=== PATIENT | female | born 2000 | race Caucasian/White ===

== ENCOUNTER → 2020-06-11 10:58 | Outpatient (BNVA) | payer BC, SELFPAY | PROVIDERS: Family Provider Pediatrics Adolescent Medicine; Visit Provider Nurse Practitioner Family | DX: Z20.828 Contact with and (suspected) exposure to other viral communicable diseases (principal) | CPT/HCPCS: 87635 ==

== ENCOUNTER 2020-09-02 08:09 | Emergency (ER) | payer BC, SELFPAY ==
[2020-09-02 08:14] VITALS: BP 120/82; PULSE 109; RESP 16; TEMP 36.3; O2SAT 99; BMI 27.4
--- NOTE | 2020-09-02 08:17 | W.ED.LOWEXIN ---
HPI - Extremity Injury (Lower) General: Chief Complaint: Extremity Injury, Lower Stated Complaint: FELL, R ANKLE INJURY/PAIN Time Seen by Provider: 09/02/20 08:12 Source: patient Mode of arrival: wheelchair Limitations: no limitations History of Present Illness: HPI Narrative: Patient is a nice 19-year-old female who presents to ED today for evaluation of a right ankle injury that she sustained after twisting it while going down icy steps. She has no other injuries at this time. Patient reports not being able to bear weight on the extremity. MD complaint: ankle injury Onset (ago): hour(s) Injury: Right: ankle Type of Injury: inversion Place: home Severity: moderate Relieving factors: immobilization Exacerbating factors: weight bearing, movement and palpation Associated symptoms: Reports no associated symptoms Other symptoms: none Review of Systems Musc: Reports: other (R ankle pain/swelling); Denies: neck pain or back pain Neuro: Denies: numbness in extremities or sensory changes Physical Exam Const: COMMON NORMALS: no acute distress, average body habitus, patient oriented x3, no limitations, healthy appearing, alert and well nourished Extremity: OTHER: TTP and swelling noted to R lateral malleolus Neuro: COMMON NORMALS: patient oriented x3, moves all extremities, no focal motor deficits and no sensory deficits noted SENSORIUM/ORIENTATION: Yes alert Skin: COMMON NORMALS: no rashes or lesions noted GENERAL SKIN EXAM: no rashes or lesions noted Course Vital Signs: Vital signs: Vital Signs Temperature 97.3 F L 09/02/20 08:14 Pulse Rate 109 H 09/02/20 08:14 Respiratory Rate 18 09/02/20 08:50 Blood Pressure 135/44 09/02/20 08:50 Pulse Oximetry 99 09/02/20 08:14 MDM - Extremity Injury (Lower) MDM Narrative: Medical decision making narrative: pt will be splinted and CM will get her set up with orthopedics for followup Imaging Data^: R ankle XR: Radiologist's impression: [address] [address] XRay Report Signed Patient: Klarissa Rosas Unit #: [id number] : 2000 Age/Sex: 19 / F ADM Date: 09/02/20 Loc: ER Room/Bed: Attending Dr: Ordering Provider/Ordering MD: Yara Tobar Date of Service: 09/02/20 Procedure(s): XR ankle RT min 3V* 53474 Accession Number(s): [id number] Report Number: [id number] WS: [id number] RIGHT ANKLE: 3 VIEW(S) TECHNIQUE: AP, oblique(s) and lateral. HISTORY: trauma COMPARISON: None available. Seen only on the lateral projection is blunting and loss of the normal cortex of the anterior tibial plafond. No fracture fragment is identified. There is a linear sclerotic line involving the distal tibia which may be an impaction fracture. There is a small joint effusion and soft tissue edema anterior to the tibiotalar joint space. No significant degenerative changes at the joint spaces. XR/XR ankle RT min 3V* [id number] IMPRESSION: 1. Abnormal contour of the anterior tibial plafond seen on the lateral projection suspicious for an impaction fracture. No bone fragment identified. 2. Additional horizontal sclerosis involving the distal tibia suspicious for fracture. Dictated By: Bia López DO Signed By: Bia López DO Signed Date/Time: 09/02/20 0854 DD/ 0851 Discharge Plan Discharge Patient Disposition: Home Clinical Impression: Fracture of distal end of tibia Qualifiers: Encounter type: initial encounter Fracture type: closed Fracture morphology: pilon Fracture alignment: nondisplaced Laterality: right Qualified Code(s): S82.874A - Nondisplaced pilon fracture of right tibia, initial encounter for closed fracture Condition: Stable Prescriptions: No Action norgestimate-ethinyl estradiol [Tri-Sprintec (28)] 0.18/0.215/0.25 mg-35 mcg (28) tablet 1 tab PO DAILY RF: 0 melatonin 5 mg capsule 5 mg PO .qhs RF: 0 Discharge Orders: Discharge ED (Routine); Ordered 09/02/20 Ordered By: Yara Tobar Activity Restrictions/Additional Instructions: Case management should contact you shortly to set you up with orthopedics. Coding Level of Care Code ED Probation Manager for Chg Fwd Exam Expanded Problem Focused
--- NOTE | 2020-09-02 08:22 | XR_ITS ---
WS: [id number] RIGHT ANKLE: 3 VIEW(S) TECHNIQUE: AP, oblique(s) and lateral. HISTORY: trauma COMPARISON: None available. Seen only on the lateral projection is blunting and loss of the normal cortex of the anterior tibial plafond. No fracture fragment is identified. There is a linear sclerotic line involving the distal ti ca which may be an impaction fracture. There is a small joint effusion and soft tissue edema anterior to the tibiotalar joint space. No significant degenerative changes at the joint spaces. XR/XR ankle RT min 3V* [id number] IMPRESSION: 1. Abnormal contour of the anterior tibial plafond seen on the lateral project ion suspicious for an impaction fracture. No bone fragment identified. 2. Additional horizontal sclerosis involving the distal tibia suspicious for f racture.
[2020-09-02 08:50] VITALS: BP 135/44; RESP 18
--- NOTE | 2020-09-02 09:35 | PC.NURSE ---
ROSANNA Livingston caught patient in the waiting room prior to leaving due to the radiology reading coming back and showing possible fracture. Short posterior splint with sugar tong placed on patient and patient then discharged.
--- NOTE | 2020-09-02 10:40 | DCPLANNER ---
manager control had message to schedule a follow up appointment for patient with ortho. manager control called the ortho clinic, spoke with Urszula, gave the clinic patients information. manager control was told that patients information would be printed and reviewed. Clinic will call patient with appointment information.
--- NOTE | 2020-09-03 08:18 | DCPLANNER ---
Patient had a follow up appointment for patient with ortho on 09.02.20 - patient did attend appointment.
== END 2020-09-02 08:50 | disposition home or self-care (01) ==
PROVIDERS: Emergency Provider Physician Assistant
DX: S82.874A Nondisplaced pilon fracture of right tibia, initial encounter for closed fracture (principal); X50.1XXA Overexertion from prolonged static or awkward postures, initial encounter
CPT/HCPCS: 12345; 29515; 73610; 99281; 99283; E0114

== ENCOUNTER 2020-09-02 16:25 | Outpatient (CLI) | payer BC, SELFPAY | END 2020-09-02 16:26 | disposition home or self-care (01) | LOC: SPT 16:26 | PROVIDERS: Visit Provider Orthopaedic Surgery | DX: Z46.89 Encounter for fitting and adjustment of other specified devices (principal); S93.401D Sprain of unspecified ligament of right ankle, subsequent encounter; X58.XXXD Exposure to other specified factors, subsequent encounter | CPT/HCPCS: 97760; L1902 ==

== ENCOUNTER 2022-07-30 09:06 | Emergency (ER) | payer BC, SELFPAY ==
[2022-07-30 09:11] VITALS: BP 154/86; PULSE 100; RESP 13; TEMP 36.9; O2SAT 99; BMI 31.1
--- NOTE | 2022-07-30 09:39 | ECG_ITS ---
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 Measurements Intervals [place] Rate: 80 P: 42 LA: 141 QRS: 53 QRSD: 90 T: 15 QT: 360 QTc: 415 Interpretive Statements SINUS RHYTHM NONSPECIFIC T-WAVE ABNORMALITY No previous ECG available for comparison Electronically Signed On 07-30-2022 19:00:51 LUMP MACHINE OPERATOR by Tawny Underwood M.D. [id number]
--- NOTE | 2022-07-30 09:39 | XRR_ITS ---
PROCEDURE INFORMATION: Exam: XR Chest Exam date and time: 07/30/2022 9:51 AM Age: 21 years old Clinical indication: Cough and dyspnea. TECHNIQUE: Imaging protocol: Radiologic exam of the chest. Views: 1 view. COMPARISON: No relevant prior studies available. FINDINGS: Lungs: No pulmonary consolidation. Pleural spaces: No pleural effusion. No pneumothorax. Heart/Mediastinum: The cardiac silhouette is unremarkable. No gross evidence of pneumomediastinum. Bones/joints: No gross fracture. XR/XR chest 1V portable [id number] IMPRESSION: No acute cardiopulmonary abnormality identified.
[2022-07-30 09:45] VITALS: BP 141/70; O2SAT 98
--- NOTE | 2022-07-30 10:10 | ED_ITS ---
HPI - General Adult General: Chief complaint: General Medical Stated complaint: Robles sent for BP issues and headache Time Seen by Provider: 07/30/22 09:31 Source: patient Mode of arrival: ambulatory History of Present Illness: 21-year-old female presents to the emergency room with complaints of elevated blood pressure and headache. Yesterday she had a headache with some associated blurry vision this morning when she went to see her doctor blood pressure is elevated at 178/102 her vision is resolved today. Her primary care physician sent her to the emergency room. Her symptoms have resolved at this point and she had no recent fever sweats chills nausea vomiting or diarrhea no dysuria urgency or frequency. Onset (ago): day(s) (1) Location: head Quality: dull Pain Consistency: constant Relieving factors: none Exacerbating factors: none Associated symptoms: Reports headache(s); Deny chest pain, confusion, cough, diaphoresis, decreased appetite, dyspnea, fevers/chills, malaise, nausea, rash, palpitations, seizures, short of breath, syncope, vomiting or weakness Treatments prior to arrival: none Review of Systems Const: Denies: fever(s), chills, fatigue, malaise or diaphoresis ENMT: Denies: throat pain, ear or mastoid pain, nasal discharge or nasal congestion Card: Denies: chest pain, palpitations or syncope Resp: Denies: dyspnea GI: Denies: abdominal pain, nausea or vomiting : Denies: flank pain, difficulty voiding, dysuria, urinary frequency or urinary urgency Skin/Breast: Denies: rash Neuro: Reports: headache(s); Denies: confusion PFSH ED PFSH: Medical History (Updated 08/03/22 @ 07:52 by Eric Gunter DO) No significant past medical history Surgical History (Updated 08/03/22 @ 07:52 by Eric Gunter DO) No significant past surgical history Social History (Updated 08/03/22 @ 07:52 by Eric Gunter DO) Smoking and tobacco status: never smoked Alcohol intake: never Physical Exam Const: COMMON NORMALS: no acute distress GENERAL APPEARANCE: cooperative and comfortable ORIENTATION/CONSCIOUSNESS: Yes awake, Yes oriented to person, Yes oriented to place and Yes oriented to time HENMT: COMMON NORMALS: normocephalic, atraumatic, hearing grossly normal bilaterally, external ears normal, EAC's normal, TM's normal bilaterally, Normal nasal mucous membranes and turbinates present, moist oral mucous membranes and oropharynx normal HEAD & SCALP: normocephalic and atraumatic NOSE: Normal nasal mucous membranes and turbinates present EXTERNAL EAR: Yes external ears normal EXTERNAL AUDITORY CANAL: EAC's normal TYMPANIC MEMBRANE: TM's normal bilaterally Eye: COMMON NORMALS: Equal, round and reactive pupils present, EOMs intact bilaterally, conjunctivae normal and no scleral icterus CONJUNCTIVA: Yes conjunctivae normal PUPIL: Yes Equal, round and reactive pupils present Neck/C-Spine: COMMON NORMALS: no lymphadenopathy and supple Resp: COMMON NORMALS: normal respiratory effort, No retractions, No use of accessory muscles and clear to auscultation bilaterally AUSCULTATION: clear to auscultation bilaterally Cardio: COMMON NORMALS: regular rate, regular rhythm and No murmurs present (Cardio) RATE: regular rate RHYTHM: regular rhythm GI: COMMON NORMALS: Soft to palpation and No hepatosplenomegaly present AUSCULTATION: Yes normoactive bowel sounds PALPATION: Yes Soft to palpation, No Tenderness to palpation present (GI), No Guarding due to palpation present (GI) and Yes No hepatosplenomegaly present Extremity: COMMON NORMALS: normal to inspection, capillary refill normal, no clubbing, cyanosis or edema, no calf tenderness and no pedal edema Neuro: SENSORIUM/ORIENTATION: Yes oriented to person, Yes oriented to place and Yes oriented to time Skin: COMMON NORMALS: no rashes or lesions noted GENERAL SKIN EXAM: no rashes or lesions noted Course Vital Signs: Vital signs: Vital Signs Temperature 98.4 F 07/30/22 09:11 Pulse Rate 100 07/30/22 09:11 Respiratory Rate 13 07/30/22 09:11 Blood Pressure 141/70 07/30/22 09:45 Pulse Oximetry 98 07/30/22 09:45 Oxygen Delivery Me thod 07/30/22 09:45 [facility] - General Adult Medical Decision Making Neurologically intact no focal neurologic deficits are noted laboratory test reviewed. EKG and chest x-ray unremarkable blood pressure is stable at this point. We will go ahead and start on amlodipine 2 and half milligrams daily follow-up with her primary care doctor recheck blood pressure within the week. Some of her symptoms are suggestive of migraine variant. Medical Records I reviewed the patient's medical records. Lab Data I reviewed the patient's lab results. 07/30/22 10:04 07/30/22 10:04 Radiology Impressions Chest X-Ray 07/30/22 09:39 IMPRESSION: No acute cardiopulmonary abnormality identified. Laboratory Results WBC 6.2 10^3/uL (4.0-10.0) 07/30/22 10:04 RBC 5.42 10^6/uL (4.1-5.3) H 07/30/22 10:04 Hgb 15.9 g/dL (11.5-15.3) H 07/30/22 10:04 Hct 47.2 % (37.0-47.0) H 07/30/22 10:04 MCV 87.1 fl (81-99) 07/30/22 10:04 MCH 29.3 pg (28.0-34.0) 07/30/22 10:04 MCHC 33.7 g/dL (30.0-36.0) 07/30/22 10:04 RDW 12.9 % (12.1-15.1) 07/30/22 10:04 Plt Count 304 10^3/cmm (130-400) 07/30/22 10:04 MPV 11.0 fL (7.4-10.4) H 07/30/22 10:04 Neut % (Auto) 59.3 % 07/30/22 10:04 Lymph % (Auto) 32.7 % 07/30/22 10:04 [place] % (Auto) 6.4 % 07/30/22 10:04 Eos % (Auto) 0.6 % 07/30/22 10:04 Baso % (Auto) 0.8 % 07/30/22 10:04 Neut # (Auto) 3.70 10^3/uL (1.8-7.7) 07/30/22 10:04 Lymph # (Auto) 2.0 10^3/uL (0.8-4.8) 07/30/22 10:04 [place] # (Auto) 0.4 10^3/uL (0.2-0.9) 07/30/22 10:04 Eos # (Auto) 0.0 10^3/uL (0.0-0.8) 07/30/22 10:04 Baso # (Auto) 0.1 10^3/uL (0.0-0.1) 07/30/22 10:04 Nucleated RBC % (auto) 0 % 07/30/22 10:04 Nucleated RBCs # 0.0 /100WBC 07/30/22 10:04 Sodium 135 mmol/L (136-145) L 07/30/22 10:04 Potassium 3.9 mmol/L (3.5-5.1) 07/30/22 10:04 Chloride 102 mmol/L (98-107) 07/30/22 10:04 Carbon Dioxide 22 mmol/L (22-29) 07/30/22 10:04 Anion Gap 14.9 (5-19) 07/30/22 10:04 BUN 8 mg/dL (6-20) 07/30/22 10:04 Creatinine 0.7 mg/dL (0.5-0.9) 07/30/22 10:04 GFR Calculation 105.6 mL/min (90-130) 07/30/22 10:04 Glucose 81 mg/dL (65-115) 07/30/22 10:04 Calculated Osmolality 277 mOsm/kg (285-295) L 07/30/22 10:04 Calcium 9.8 mg/dL (8.5-10.5) 07/30/22 10:04 Discharge Plan Discharge Patient Disposition: Home Clinical Impression: Elevated blood pressure reading, Migraine variant Condition: Stable Prescriptions: New amlodipine 2.5 mg tablet 2.5 mg PO DAILY Qty: 30 0RF No Action melatonin 5 mg capsule 5 mg PO BEDTIME (DME) CAM WALKER See Rx Instructions .ROUTE .MEDSUPPLY Qty: 1 0RF Rx Instructions: As directed (DME) Lace up ankle brace See Rx Instructions .Route .MEDSUPPLY Qty: 1 0RF Rx Instructions: As directed 1.5/30 (28) 1.5 mg-30 mcg (21)/75 mg (7) tablet 1 tab PO DAILY Discharge Orders: Discharge ED (Routine); Ordered 07/30/22 Ordered By: Eric Gunter Referrals: Alaina Arboleda DO [Primary Care Provider] - Discharge Diet: Usual diet Discharge Activity: Resume usual activity Activity Restrictions/Additional Instructions: You were seen today for a headache with vision disturbance and elevated blood pressure. Based on history I think your visual disturbance which had resolved when you were here is probably a migraine variant. Your blood pressure remains slightly elevated and you reported and much more elevated level at the doctor's office. We started you on amlodipine 2.5 mg daily. Follow-up with your primary care doctor recheck your blood pressure within the next week. Coding Level of Care Code ED Health Facilities Surveyor for Higinio Wilson
[2022-07-30 10:26] LABS: Basophils # 0.1 10^3/uL (0.0-0.1); Basophils % 0.8 %; Eosinophils % 0.6 %; Hematocrit 47.2 % (37.0-47.0); Hemoglobin 15.9 g/dL (11.5-15.3); Lymphocytes % 32.7 %; Mean Corpuscular HGB Conc 33.7 g/dL (30.0-36.0); Mean Corpuscular Hemoglobin 29.3 pg (28.0-34.0); Mean Corpuscular Volume 87.1 fl (81-99); Monocytes # 0.4 10^3/uL (0.2-0.9); Monocytes % 6.4 %; Neutrophils % 59.3 %; Nucleated Red Blood Cells % 0 %; Platelet Count 304 10^3/cmm (130-400); Red Blood Count 5.42 10^6/uL (4.1-5.3); Red Cell Distribution Width 12.9 % (12.1-15.1); White Blood Count 6.2 10^3/uL (4.0-10.0)
[2022-07-30 10:43] LABS: Anion Gap 14.9 (5-19); Blood Urea Nitrogen 8 mg/dL (6-20); Calcium 9.8 mg/dL (8.5-10.5); Carbon Dioxide 22 mmol/L (22-29); Chloride 102 mmol/L (98-107); Glomerular Filtration Rate 105.6 mL/min (90-130); Glucose 81 mg/dL (65-115); Osmolality Calculated 277 mOsm/kg (285-295); Potassium 3.9 mmol/L (3.5-5.1); Sodium 135 mmol/L (136-145)
== END 2022-07-30 11:45 | disposition home or self-care (01) ==
PROVIDERS: Emergency Provider Family Medicine; PCP Family Medicine
DX: R03.0 Elevated blood-pressure reading, without diagnosis of hypertension (principal); G43.809 Other migraine, not intractable, without status migrainosus
CPT/HCPCS: 71045; 80048; 85025; 93005; 99285

== ENCOUNTER → 2022-11-04 08:52 | Outpatient (BNVA) | payer SELFPAY | PROVIDERS: PCP Family Medicine; Visit Provider Nurse Practitioner Women's Health | DX: N92.6 Irregular menstruation, unspecified (principal); Z32.01 Encounter for pregnancy test, result positive; Z32.02 Encounter for pregnancy test, result negative | CPT/HCPCS: 81000; 81025; 84702 ==

== ENCOUNTER → 2022-11-16 08:10 | Outpatient (BNVA) | payer SELFPAY | PROVIDERS: PCP Family Medicine; Visit Provider Nurse Practitioner Women's Health | DX: Z32.00 Encounter for pregnancy test, result unknown (principal) | CPT/HCPCS: 84702 ==

== ENCOUNTER → 2023-01-06 10:43 | Outpatient (BNVA) | payer MEDICAID, SELFPAY | PROVIDERS: PCP Family Medicine; Visit Provider Nurse Practitioner Women's Health | DX: Z32.00 Encounter for pregnancy test, result unknown (principal) | CPT/HCPCS: 81025 ==

== ENCOUNTER → 2023-01-07 09:40 | Outpatient (BNVA) | payer MEDICAID, SELFPAY | PROVIDERS: PCP Family Medicine; Visit Provider Nurse Practitioner Women's Health | DX: Z32.00 Encounter for pregnancy test, result unknown (principal) | CPT/HCPCS: 84702 ==

== ENCOUNTER → 2023-02-02 09:28 | Outpatient (BNVA) | payer MEDICAID, SELFPAY | PROVIDERS: PCP Family Medicine; Visit Provider Obstetrics & Gynecology | DX: Z36.87 Encounter for antenatal screening for uncertain dates (principal) | CPT/HCPCS: 76817 ==

== ENCOUNTER → 2023-02-04 08:17 | Outpatient (BNVA) | payer MEDICAID, SELFPAY | PROVIDERS: PCP Family Medicine; Visit Provider Nurse Practitioner Women's Health | DX: O09.90 Supervision of high risk pregnancy, unspecified, unspecified trimester (principal); Z3A.00 Weeks of gestation of pregnancy not specified | CPT/HCPCS: 81000; 87086 ==

== ENCOUNTER → 2023-02-19 10:30 | Outpatient (BNVA) | payer MEDICAID, SELFPAY | PROVIDERS: PCP Family Medicine; Visit Provider Obstetrics & Gynecology | DX: O09.90 Supervision of high risk pregnancy, unspecified, unspecified trimester (principal) | CPT/HCPCS: 80307; 81000; 85027; 86592; 86762; 86803; 86850; 86900; 87340; 87806 ==

== ENCOUNTER → 2023-03-12 09:39 | Outpatient (BNVA) | payer MEDICAID, SELFPAY | PROVIDERS: PCP Family Medicine; Visit Provider Obstetrics & Gynecology | DX: O09.90 Supervision of high risk pregnancy, unspecified, unspecified trimester (principal); Z3A.00 Weeks of gestation of pregnancy not specified | CPT/HCPCS: 84315; 87491; 87591 ==

== ENCOUNTER → 2023-03-30 09:20 | Outpatient (BNVA) | payer MEDICAID, SELFPAY | PROVIDERS: PCP Family Medicine; Visit Provider Nurse Practitioner Women's Health | DX: O09.90 Supervision of high risk pregnancy, unspecified, unspecified trimester (principal); I10 Essential (primary) hypertension; Z78.9 Other specified health status; O41.8X90 Other specified disorders of amniotic fluid and membranes, unspecified trimester, not applicable or unspecified; O46.8X9 Other antepartum hemorrhage, unspecified trimester; Z3A.16 16 weeks gestation of pregnancy | CPT/HCPCS: 82105; 84156; 84315; 87086 ==

== ENCOUNTER 2023-04-05 12:45 | Outpatient (CLI) | payer MEDICAID, SELFPAY ==
[2023-04-05 14:36] LABS: Total Volume, Urine 2150 mL
== END 2023-04-05 12:46 | disposition home or self-care (01) ==
PROVIDERS: PCP Family Medicine; Visit Provider Nurse Practitioner Women's Health
DX: O09.90 Supervision of high risk pregnancy, unspecified, unspecified trimester (principal); O16.9 Unspecified maternal hypertension, unspecified trimester; Z3A.00 Weeks of gestation of pregnancy not specified
CPT/HCPCS: 84156

== ENCOUNTER → 2023-04-27 09:27 | Outpatient (BNVA) | payer MEDICAID, SELFPAY | PROVIDERS: PCP Family Medicine; Visit Provider Obstetrics & Gynecology | DX: Z34.90 Encounter for supervision of normal pregnancy, unspecified, unspecified trimester (principal) | CPT/HCPCS: 76805 ==

== ENCOUNTER → 2023-05-25 08:25 | Outpatient (BNVA) | payer MEDICAID, SELFPAY | PROVIDERS: PCP Family Medicine; Visit Provider Obstetrics & Gynecology | DX: Z34.90 Encounter for supervision of normal pregnancy, unspecified, unspecified trimester (principal) | CPT/HCPCS: 76816; 82950; 84315 ==

== ENCOUNTER → 2023-06-21 09:38 | Outpatient (BNVA) | payer MEDICAID, SELFPAY | PROVIDERS: PCP Family Medicine; Visit Provider Obstetrics & Gynecology | DX: O09.90 Supervision of high risk pregnancy, unspecified, unspecified trimester (principal); Z3A.28 28 weeks gestation of pregnancy | CPT/HCPCS: 84315; 85025 ==

== ENCOUNTER 2023-06-23 13:38 | Outpatient (CLI) | payer MEDICAID, SELFPAY ==
[2023-06-23 13:46] VITALS: BMI 31.1
[2023-06-23 13:56] VITALS: BP 128/71; PULSE 94; TEMP 35.7
[2023-06-23 14:07] VITALS: RESP 15; TEMP 37.3
[2023-06-23 14:23] LABS: Urine Appearance Cloudy (CLEAR); Urine Color Yellow (Yellow)
[2023-06-23 14:24] LABS: Bilirubin Urine Neg (Negative); Blood Urine Neg (Negative); Glucose Urine UA Norm (Normal); Ketones Urine 1+ (Negative); Leukocyte Esterase Urine Negative (Negative); Nitrate Urine Negative (Negative); Protein Urine Neg (Negative); Specific Gravity, Urine 1.015 (1.005-1.030); Urobilinogen Urine Norm (Negative); pH Urine 7 (5-7)
[2023-06-23 14:35] LABS: Amorphous Sediment Urine TRACE /hpf; Bacteria Urine 2+ /hpf; Mucus Urine 2+ /hpf; RBC Urine 0-4 /hpf (0-2); WBC Urine 15-25 /hpf (0-5)
[2023-06-23 14:36] LABS: Add Urine Culture? Yes; Fine Granular Casts Urine 0-4 /lpf; Oval Fat Bodies Urine 1+ /hpf
[2023-06-23 14:49] VITALS: BP 119/65; PULSE 80
== END 2023-06-23 14:54 | disposition home or self-care (01) ==
LOC: OPOB 13:43 → OBGYN 13:45
PROVIDERS: PCP Family Medicine; Visit Provider Obstetrics & Gynecology
DX: O21.9 Vomiting of pregnancy, unspecified (principal); Z3A.00 Weeks of gestation of pregnancy not specified
CPT/HCPCS: 59025; 81001; 87086; 99211

== ENCOUNTER → 2023-08-19 08:43 | Outpatient (BNVA) | payer MEDICAID, SELFPAY | PROVIDERS: PCP Family Medicine; Visit Provider Obstetrics & Gynecology | DX: O09.90 Supervision of high risk pregnancy, unspecified, unspecified trimester (principal); Z3A.36 36 weeks gestation of pregnancy | CPT/HCPCS: 84315; 87081 ==

== ENCOUNTER 2023-08-24 08:32 | Outpatient (CLI) | payer MEDICAID, SELFPAY ==
[2023-08-24 08:32] VITALS: BMI 33.5
[2023-08-24 08:45] VITALS: BP 139/79; PULSE 78
[2023-08-24 08:50] VITALS: RESP 17
[2023-08-24 09:20] VITALS: BP 124/69; PULSE 86
== END 2023-08-24 09:24 | disposition home or self-care (01) ==
LOC: OPOB 08:35 → OBGYN 08:36
PROVIDERS: PCP Family Medicine; Visit Provider Obstetrics & Gynecology
DX: O16.9 Unspecified maternal hypertension, unspecified trimester (principal); Z3A.00 Weeks of gestation of pregnancy not specified
CPT/HCPCS: 59025; 76819; 76820; 99211

== ENCOUNTER 2023-09-04 14:05 | Inpatient (IN) | payer MEDICAID, SELFPAY ==
[2023-09-04] VITALS (57 sets, daily range): BP systolic 117–162; BP diastolic 57–103; PULSE 69–126; RESP 16; TEMP 35.8–36.3; O2SAT 93–100; BMI 34.2
[2023-09-04 09:52] LABS: Basophils % 0.4 %; Eosinophils # 0.1 10^3/uL (0.0-0.8); Eosinophils % 0.7 %; Hematocrit 35.5 % (36-47); Lymphocytes # 2.2 10^3/uL (0.8-4.8); Lymphocytes % 19.3 %; Mean Corpuscular HGB Conc 33.8 g/dL (30-55); Mean Corpuscular Hemoglobin 29.1 pg (27-33); Mean Corpuscular Volume 86.2 fl (85-98); Mean Platelet Volume 12.3 fL (7.4-10.4); Monocytes # 0.7 10^3/uL (0.2-0.9); Monocytes % 6.4 %; Neutrophils # 8.19 10^3/uL (1.8-7.7); Nucleated Red Blood Cells % 0 %; Platelet Count 229 10^3/cmm (157-399); Red Blood Count 4.12 10^6/uL (3.85-5.65); Red Cell Distribution Width 12.9 % (12.1-15.1); White Blood Count 11.37 10^3/uL (3.29-11.43)
[2023-09-04] MEDS: miSOPROStol 100 mcg tablet 25 MCG VAGINAL ×2 (10:41→14:46)
--- NOTE | 2023-09-04 14:48 | P.HP_ITS ---
Providers/Chief Complaint 2 Admitting Physician: Monique Rea DO Primary AIRPORT REPRESENTATIVE: Dr. Andrea Primary Care Provider: Alaina Arboleda DO Chief Complaint: elective induction of labor HPI AIRPORT REPRESENTATIVE History of Present Illness Klarissa Rosas is a 22 year old female G1, P0 at 39 weeks gestation with SANDRO 09/11/2023 admitted to labor and delivery for induction of labor due to history of essential hypertension that has required no medication during this . Also ultrasound measures baby at the 11th percentile at 37.1 weeks gestation. HARPAL 6.9 cm borderline oligohydramnios. Upon presentation nursing evaluation?blood pressure in normal range EFM?category 1 Cervix?closed/thick/high vertex presentation. Present Details : 1 Para: 0 Labs Rubella: Immune RPR: Negative GBS: Negative Review of Systems 2 Const: Denies: fever(s) Eyes: Denies: floaters Card: Denies: swelling of feet/ankles GI: Denies: abdominal pain, nausea, vomiting, heartburn or constipation : Denies: dysuria, vaginal bleeding, vaginal discharge or other (contractions/leaking fluid ) Musc: Denies: back pain or muscle cramps Neuro: Denies: headache(s) Psych: Denies: anxiety or depression Medications/Allergies Home Medications Medication Instructions Recorded Confirmed Last Taken Type prenat.vits,karishma,djc-yabq-luggd 1 tab PO DAILY 02/04/23 09/02/23 Unknown History Allergies Allergy/AdvReac Type Severity Reaction Status Date / Time No Known Allergies Allergy Verified 09/02/23 08:05 PFSH AIRPORT REPRESENTATIVE 2 PFSH: Medical History Hypertension (~07/2022) Dx'd in 07/2022-- she was initially on Amlodipine; stopped her control and just took the medication prn. No significant past medical history neghx:dm, thyroid,dvt/pe PCP: Dr. Arboleda [facility] Surgical History No significant past surgical history Family History Father Diabetes Family/Other Heart disease maternal Thyroid disease paternal Hypertension PGM, PGM-- late onset Hyperlipidemia MGM, mat aunt, mother, mat uncle Denies family history of Colon cancer Ovarian cancer Breast cancer Uterine cancer Stroke Other Female Reproductive History: Hx Age of Menarche: 12 Duration of menses: 3-5 days Menstrual flow: normal/abnormal: normal Sexual History: How old were you when you first had sex?: 17 How many partners have you had?: 1 How long have you been with your current partner?: 5yrs Hx Sexually Transmitted Diseases: No Contraception: Contraception History Comment: Contraceptive history with Junel which contributed to hypertension. Also contributed to irregular menstrual cycles and patient self DC'd. History History History 2 1 Term 0 0 Miscarriages/Ectopic 0 Living Children 0 Care SANDRO Calculator 2 Estimated Delivery Date Method Current WG Current Estimate 09/11/23 Ultrasound #1 39w 0d Specific Issues/Plans * CHRONIC HTN- not on medication coming into the ; did not start ASA;24hrUTP normal * -S--U-L-Q-U-B-S-I-O-N-I-C- -O-O-K-C-O-V-M-A--- -s-m-a-l-l-;- -x-e-s-s-s-e-s- -a-t- -3-3-m-k-----l-k-e-o-l-v-e-d- * UNKNOWN LMP Vitals/I&O/Wt Last Vital Signs Temp 97.4 F L 09/04/23 09:44 Pulse 83 09/04/23 14:32 Resp 16 09/04/23 09:44 BP 130/61 09/04/23 14:32 O2 Del Method Room Air 09/04/23 09:15 Weight last 48 hrs Weight 84.822 kg Physical Exam 2 Narrative: 22-year-old female Const: COMMON NORMALS: no acute distress, patient oriented x3, healthy appearing, alert and well nourished Resp: COMMON NORMALS: normal respiratory effort and clear to auscultation bilaterally Cardio: COMMON NORMALS: regular rate and regular rhythm Back/Pelvis: OTHER: Abdomen soft gravid no tenderness to palpation. Extremity: COMMON NORMALS: normal to inspection, no clubbing, cyanosis or edema and no calf tenderness Data 09/04/23 09:25 Results Labs OB ([facility]): 2 Obstetrics US 08/24/23 Blood Type O Positive 09/04/23 Antibody Screen Negative 09/04/23 Hct 35.5 % (36-47) L 09/04/23 Hgb 12.00 g/dL (11.27-16.99) 09/04/23 Rho(D) Type Rh positive 09/04/23 Plt Count 229 10^3/cmm (157-399) 09/04/23 Hep Bs Antigen Non-reactive (Nonreactive) 02/19/23 Hep Bs Antibody 13.9 (0-8.5) H 04/09/20 Hepatitis C Antibody Non-reactive (Nonreactive) 02/19/23 Rubella IgG Antibody 236.2 IU/mL (0.0-10.0) H 02/19/23 RPR Nonreactive (Nonreactive) 02/19/23 HIV 1&2 Ab & HIV 1 Ag Non-reactive (Non-Reactiv) 02/19/23 C.trachomatis RNA (TMA) Not detected (NOT DETECTED) N.gonorrhoeae RNA (TMA) Not detected (NOT DETECTED) T. vaginalis Amp RNA Not detected (NOT DETECTED) 03/12/23 Chlamydia/GC Comment See note 03/12/23 Gest Glucose Tolerance 82 mg/dL (70-139) 05/25/23 VZV IgG Antibody 3440.00 INDEX H 04/09/20 Ser , Semi-Qnt 663.50 mIU/mL 01/07/23 HCG, Qual Positive (Negative) H 01/06/23 Urine Opiates Screen Negative ng/mL (Negative) 02/19/23 Ur Barbiturates Screen Negative ng/mL (Negative) 02/19/23 Ur Phencyclidine Scrn Negative ng/mL (Negative) 02/19/23 Ur Amphetamines Screen Negative ng/mL (Negative) 02/19/23 U Benzodiazepines Scrn Negative ng/mL (Negative) 02/19/23 Urine Cocaine Screen Negative ng/mL (Negative) 02/19/23 U Marijuana (THC) Screen Negative ng/mL (Negative) 02/19/23 Micro Urine Specimen 06/23/23 A&P Assessment and plan (1) 39 weeks gestation of : (2) Oligomenorrhea: Qualifiers: Oligomenorrhea type: secondary Qualified Code(s): N91.4 - Secondary oligomenorrhea (3) Supervision of high-risk : Qualifiers: Trimester: third trimester Qualified Code(s): O09.93 - Supervision of high risk , unspecified, third trimester (4) Hypertension: Qualifiers: Hypertension type: primary hypertension Qualified Code(s): I10 - Essential (primary) hypertension Plan Patient was admitted to labor and delivery for induction of labor at 39 weeks gestation due to history of chronic hypertension. Recent ultrasound indicative of oligohydramnios and baby measuring in the 11 percentile(IUGR). Attestations 2 Medical Necessity Statement*: Patient admitted to labor and delivery for cervical ripening/induction of labor. Coding Level of Care Code Acute Code for Chg Fwd Diagnoses 39 weeks gestation of Z3A.39 Secondary oligomenorrhea N91.4 Oligomenorrhea type: secondary Supervision of high risk in third trimester O09.93 Trimester: third trimester Primary hypertension I10 Hypertension type: primary hypertension
[2023-09-04] MEDS: dextrose 5%-lactated ringers 1,000 ML 125 ML IV (17:12)
--- NOTE | 2023-09-04 17:58 | P.ANESASSM_ITS ---
Pre-Anesthetic Assessment Height/Weight: Height 1.57 m Weight 84.822 kg Temp Pulse Resp BP O2 Del Method 97.3 F L 75 16 141/80 Room Air 09/04/23 17:12 09/04/23 17:51 09/04/23 09:44 09/04/23 17:51 09/04/23 09:15 Preop Diagnosis: labor pain epidural Was Beta Petra taken within 24 hours: N/A Was Clonidine taken within 24 hours: N/A Exam alert, oriented x 3, clear to auscultation bilaterally and regular rate & rhythm Airway Submandibular: within normal limits Cervical ROM: within normal limits Mallampati: Class II Dentition: full Pulmonary None reported CV/HEM None reported None reported Hepatic None reported GI Gastroesophageal Reflux Disease Metabolic None reported Musc/skel None reported Neuropsych None reported Anesthetic Plan ASA status: 2 Anesthesia: Regional (specify below) Risk of > 500 ml blood loss (7ml/kg in children): No Medications/Allergies Home Medications Medication Instructions Recorded Confirmed Last Taken Type prenat.vits,karishma,rny-xvgj-cusoh 1 tab PO DAILY 02/04/23 09/02/23 Unknown History Allergies Allergy/AdvReac Type Severity Reaction Status Date / Time No Known Allergies Allergy Verified 09/02/23 08:05 Current Medications Generic Name Dose Route Start Last Admin Trade Name Freq PRN Reason Stop Dose Admin Dextrose/Lactated Ringer's 1,000 mls @ 125 mls/hr 09/04/23 09:45 09/04/23 17:12 Dextrose 5%-Lactated Ringers IV 125 mls/hr .Q8H MENDOZA Administration [facility] Anesthesia Medical History Hypertension (~07/2022) Dx'd in 07/2022-- she was initially on Amlodipine; stopped her control and just took the medication prn. No significant past medical history neghx:dm, thyroid,dvt/pe PCP: Dr. Arboleda [facility] Surgical History No significant past surgical history Family History Father Diabetes Family/Other Heart disease maternal Thyroid disease paternal Hypertension PGM, PGM-- late onset Hyperlipidemia MGM, mat aunt, mother, mat uncle Denies family history of Colon cancer Ovarian cancer Breast cancer Uterine cancer Stroke Female Reproductive History : 1 Data Anesthesia 09/04/23 09:25 Short CBC 09/04/23 Range/Units 09:25 WBC 11.37 (3.29-11.43) 10^3/uL Hgb 12.00 (11.27-16.99) g/dL Hct 35.5 L (36-47) % MCV 86.2 (85-98) fl Plt Count 229 (157-399) 10^3/cmm Neut % (Auto) 72.0 % Neut # (Auto) 8.19 H (1.8-7.7) 10^3/uL Blood Bank 09/04/23 09:25 Blood Type O Positive Rho(D) Type Rh positive Antibody Screen Negative Cardiac Studies: 2 No Data to Display
[2023-09-04] MEDS: lactated ringers 1,000 ML 999 ML IV (18:09)
[2023-09-04] MEDS: ROPivacaine syringe 100 MG/50 ML SYRINGE 13 MG EPIDURAL ×2 (18:09→20:56)
--- NOTE | 2023-09-04 18:28 | P.ANES_ITS ---
Anesthesia Procedures Procedure/Date: 09/04/23 epidural Procedure Narrative: epidural complete, bolus given, epidural pump initiated with PUMP AND STILL OPERATOR education given, vitals taken during procedure and satisfactory throughout, patient admits to decrease pain, report of procedure to OB RN Epidural: Time Out Performed: Yes Consents Signed: Procedure Consent Consent: requested by attending/covering physician, from patient, risks and benefits reviewed and patient agrees to proceed Lumbar Level: L3-L4 Ep idural position: sitting Epidural procedure: sterile prep of area, 1% lidocaine to numb the area (3 mL), 18 g needle, negative for paresthesia passed, neg for paresthesia, test dose given, 1.5% xylocaine 1:200k epi (5 mL), 0.2% Ropivacaine bolus ml (5 mL), placed PCEA, no systemic response, sterile dressing applied, L.U.D. no apparent complications and 0.2% Ropiavacaine @ mls/hr (13 mL/hr)
[2023-09-04] MEDS: oxytocin 30 UNIT/500 ML BAG 999 UNIT IV (22:11)
[2023-09-04] MEDS: lidocaine 2% INJ 20 mL INJECTION (22:13)
--- NOTE | 2023-09-04 22:30 | PM.DELIVERY ---
Delivery Note: Date of delivery: September 04, 2023 Pre-delivery diagnoses: 39-week gestation Chronic hypertension (no medication) Oligohydramnios IUGR Post-delivery diagnoses: Same Procedure: Cervical ripening/induction of labor Op report anesthesia: Epidural Delivering Physician: Monique Rea DO Estimated blood loss (mL): 300 Findings: Viable male 5 pound 7 ounces 8 /9 Post Delivery Diagnoses: Oligomenorrhea: Qualifiers: Oligomenorrhea type: secondary Qualified Code(s): N91.4 - Secondary oligomenorrhea Supervision of high-risk : Qualifiers: Trimester: third trimester Qualified Code(s): O09.93 - Supervision of high risk , unspecified, third trimester Hypertension: Qualifiers: Hypertension type: primary hypertension Qualified Code(s): I10 - Essential (primary) hypertension Delivery: 22-year-old female G1, P1 delivered a viable male OA presentation via . Anterior followed by the posterior shoulders delivered with the remainder of the baby's body to follow. Spontaneous robust cry noted. After delayed clamping of the cord, the cord was clamped and cut and baby placed on mother's abdomen for bonding. Three-vessel cord was noted, arterial pH and cord blood obtained and handed off. The uterus was massaged and the placenta presented in a Jorge presentation with trailing membranes. IV solution containing Pitocin was given in a bolus manner. The uterus was massaged and firmed well with minimal bleeding. The vaginal vault was explored second-degree vaginal laceration repaired with 2-0 Vicryl. With good approximation and hemostasis the perineum was intact. The uterus massaged noted to still be firm. Needle instrument sponge count correct. Mother and infant are both in stable and satisfactory condition. History History History 1 Term 1 0 Miscarriages/Ectopic 0 Living Children 1 A&P Assessment and plan (1) 39 weeks gestation of : S/p viable male 5 pounds 7 ounces (2) Oligomenorrhea: Qualifiers: Oligomenorrhea type: secondary Qualified Code(s): N91.4 - Secondary oligomenorrhea (3) Supervision of high-risk : Qualifiers: Trimester: third trimester Qualified Code(s): O09.93 - Supervision of high risk , unspecified, third trimester (4) Hypertension: Qualifiers: Hypertension type: primary hypertension Qualified Code(s): I10 - Essential (primary) hypertension (5) IUGR (intrauterine growth restriction): Plan Patient was admitted to labor and delivery for induction of labor at 39 weeks gestation due to history of chronic hypertension. Recent ultrasound indicative of oligohydramnios and baby measuring in the 11 percentile(IUGR). Begin care. Coding Level of Care Code Acute Code for Chg Fwd Diagnoses 39 weeks gestation of Z3A.39 Secondary oligomenorrhea N91.4 Oligomenorrhea type: secondary Supervision of high risk in third trimester O09.93 Trimester: third trimester Primary hypertension I10 Hypertension type: primary hypertension IUGR (intrauterine growth restriction)
[2023-09-05] VITALS (8 sets, daily range): BP systolic 122–138; BP diastolic 68–86; PULSE 66–83; RESP 15–16; TEMP 36.8–37.1; O2SAT 96–98
--- NOTE | 2023-09-05 09:03 | P.PN_ITS ---
SHIPWRIGHT HELPER Subjective 2 Subjective: Interval history: Patient awake, alert ambulating in room without complaints. Patient delivered via viable baby boy and is caring for the baby without nursing assistance. Patient denies headaches blurred vision shortness of breath or chest pain. expectations, and discharge expectations reviewed patient verbalizes understanding. VSS afebrile BP 122/73?requiring no medication Labor: Station: +1 Amniotic Membrane Status: Ruptured Monitor Mode: External Contraction Pattern: Irregular Vitals/I&O/Wt Last Vital Signs Temp 98.4 F 09/05/23 06:15 Pulse 67 09/05/23 06:15 Resp 16 09/05/23 06:15 BP 122/73 09/05/23 06:15 Pulse Ox 97 09/05/23 06:15 O2 Del Method Room Air 09/05/23 06:15 09/04/23 09/05/23 09/05/23 22:59 06:59 14:59 Intake Total 1550 / 1550 1000 / 2550 Output Total 200 / 200 Balance 1350 / 1350 1000 / 2350 Weight last 48 hrs Weight 84.822 kg Physical Exam 2 Back/Pelvis: OTHER: Abdomen?soft, fundus firm below the umbilicus Lochia light. Extremity: COMMON NORMALS: no clubbing, cyanosis or edema, no calf tenderness and no pedal edema Urinary Catheter Management: Qureshi: Cath Placed During This Visit: yes, but has since been removed by the nurse Reason for Continuing Indwelling Catheter: Decision to DC Catheter Urinary Catheter Date of Insertion: 09/04/23 Urinary Catheter Time of Insertion: 18:35 Date Urinary Catheter Removed: 09/04/23 Time Urinary Catheter Discontinued: 20:59 Data 09/04/23 09:25 A&P Assessment and plan (1) Normal spontaneous vaginal delivery: (2) IUGR (intrauterine growth restriction): (3) 39 weeks gestation of : (4) Oligomenorrhea: Qualifiers: Oligomenorrhea type: secondary Qualified Code(s): N91.4 - Secondary oligomenorrhea (5) Supervision of high-risk : Qualifiers: Trimester: third trimester Qualified Code(s): O09.93 - Supervision of high risk , unspecified, third trimester (6) Hypertension: Qualifiers: Hypertension type: primary hypertension Qualified Code(s): I10 - Essential (primary) hypertension Plan Will continue to monitor through her stay Discharge to home in the a.m. 09/06/2023 Attestations 2 Medical Necessity Statement*: Patient was admitted to labor and delivery for induction and management of labor. Coding Level of Care Code Acute Code for Chg Fwd Diagnoses Normal spontaneous vaginal delivery O80 IUGR (intrauterine growth restriction) 39 weeks gestation of Z3A.39 Secondary oligomenorrhea N91.4 Oligomenorrhea type: secondary Supervision of high risk in third trimester O09.93 Trimester: third trimester Primary hypertension I10 Hypertension type: primary hypertension
[2023-09-05] MEDS: prenatal vitamin Capsule 1 CAP PO (09:23)
[2023-09-05] MEDS: docusate sodium 100 mg Capsule PO ×2 (09:23→18:02)
[2023-09-05] MEDS: ibuprofen 800 mg tablet PO ×3 (09:24→20:19)
[2023-09-05 10:59] LABS: Hematocrit 37.8 % (36-47); Mean Corpuscular HGB Conc 33.9 g/dL (30-55); Mean Corpuscular Hemoglobin 29.4 pg (27-33); Mean Corpuscular Volume 86.7 fl (85-98); Mean Platelet Volume 12.2 fL (7.4-10.4); Platelet Count 226 10^3/cmm (157-399); Red Blood Count 4.36 10^6/uL (3.85-5.65); White Blood Count 19.54 10^3/uL (3.29-11.43)
--- NOTE | 2023-09-05 11:46 | ANE.PACU2 ---
Inpatient post-anesthesia follow up: Airway intact: Yes Vital signs: Temperature 98.5 F Pulse Rate 75 Respiratory Rate 16 Blood Pressure 129/85 Pulse Oximetry 98 Oxygen Delivery Me thod Room Air Oxygen Flow Rate Fraction of Inspir ed Oxygen Hydration adequate: Yes Nausea and vomiting: No Pain level: 2 Mental status: Baseline Epidural Start/End: Epidural Start Date: 09/04/23 Epidural Start Time: 18:08 Epidural End Date: 09/04/23 Epidural End Time: 22:30
[2023-09-06 04:00] VITALS: BP 155/78; PULSE 61; RESP 18; TEMP 36.6; TEMP 36.7; O2SAT 99
[2023-09-06] MEDS: prenatal vitamin Capsule 1 CAP PO (09:28)
[2023-09-06] MEDS: docusate sodium 100 mg Capsule PO (09:29)
[2023-09-06] MEDS: ibuprofen 800 mg tablet PO (09:29)
[2023-09-06 09:45] VITALS: BP 148/84; PULSE 70; RESP 16
--- NOTE | 2023-09-06 11:20 | PM.OBGYDC ---
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 Date of Admission: 09/04/23 14:05 Date of Discharge: 09/06/23 Attending Provider at Admission: Monique Rea DO Attending Provider at Discharge: Monique Rea DO Primary Care Provider: Alaina Arboleda DO Diagnoses at Discharge Discharge Diagnosis (1) Normal spontaneous vaginal delivery: Status: Acute (2) IUGR (intrauterine growth restriction): Status: Acute (3) 39 weeks gestation of : Status: Acute (4) Oligomenorrhea: Status: Acute Qualifiers: Oligomenorrhea type: secondary Qualified Code(s): N91.4 - Secondary oligomenorrhea (5) Supervision of high-risk : Status: Acute Qualifiers: Trimester: third trimester Qualified Code(s): O09.93 - Supervision of high risk , unspecified, third trimester (6) Hypertension: Status: Chronic Qualifiers: Hypertension type: primary hypertension Qualified Code(s): I10 - Essential (primary) hypertension Permanent problem details: Dx'd in 07/2022-- she was initially on Amlodipine; stopped her control and just took the medication prn. Reason for Visit Reason for Visit: elective induction of labor Hospital Course Hospital Course 22-year-old female G1, P1 delivered via after induction of labor for history of chronic hypertension, IUGR, oligohydramnios. Patient's labor was uneventful. Patient's recovery has progressed well, patient denies headaches blurred vision shortness of breath or chest pain. Discussion of expectations as well as discharge orders have been reviewed with patient to include no heavy lifting pushing pulling no sex douching or tampons x 6 weeks. Patient is encouraged to continue her vitamins daily. Frequent blood pressure monitoring has been reviewed. Patient has required no hypertensive medications through this hospitalization. Patient has been counseled on returning to hospital if severe headache visual disturbances or excessive bleeding occurs. Patient understands. Information Peripartum Data: Delivery Method: Vaginal Physical Exam Back/Pelvis: OTHER: Abdomen?soft, fundus firm, lochia light. Extremity: NARRATIVE EXTREMITY EXAM: Extremities?no edema, negative Homans' sign. Urinary Catheter Management: Qureshi: Cath Placed During This Visit: yes, but has since been removed by the nurse Reason for Continuing Indwelling Catheter: Decision to DC Catheter Urinary Catheter Date of Insertion: 09/04/23 Urinary Catheter Time of Insertion: 18:35 Date Urinary Catheter Removed: 09/04/23 Time Urinary Catheter Discontinued: 20:59 History History History 1 Term 1 0 Miscarriages/Ectopic 0 Living Children 1 Discharge Data Studies Completed and Pending Laboratory Results WBC 19.54 10^3/uL (3.29-11.43) H 09/05/23 10:50 RBC 4.36 10^6/uL (3.85-5.65) 09/05/23 10:50 Hgb 12.80 g/dL (11.27-16.99) 09/05/23 10:50 Hct 37.8 % (36-47) 09/05/23 10:50 MCV 86.7 fl (85-98) 09/05/23 10:50 MCH 29.4 pg (27-33) 09/05/23 10:50 MCHC 33.9 g/dL (30-55) 09/05/23 10:50 RDW 13.0 % (12.1-15.1) 09/05/23 10:50 Plt Count 226 10^3/cmm (157-399) 09/05/23 10:50 MPV 12.2 fL (7.4-10.4) H 09/05/23 10:50 Neut % (Auto) 72.0 % 09/04/23 09:25 Lymph % (Auto) 19.3 % 09/04/23 09:25 [place] % (Auto) 6.4 % 09/04/23 09:25 Eos % (Auto) 0.7 % 09/04/23 09:25 Baso % (Auto) 0.4 % 09/04/23 09:25 Neut # (Auto) 8.19 10^3/uL (1.8-7.7) H 09/04/23 09:25 Lymph # (Auto) 2.2 10^3/uL (0.8-4.8) 09/04/23 09:25 [place] # (Auto) 0.7 10^3/uL (0.2-0.9) 09/04/23 09:25 Eos # (Auto) 0.1 10^3/uL (0.0-0.8) 09/04/23 09:25 Baso # (Auto) 0.0 10^3/uL (0.0-0.1) 09/04/23 09:25 Nucleated RBC % (auto) 0 % 09/04/23 09:25 Nucleated RBCs # 0.0 /100WBC 09/04/23 09:25 Blood Type O Positive 09/04/23 09:25 Rho(D) Type Rh positive 09/04/23 09:25 Antibody Screen Negative 09/04/23 09:25 Procedures Performed Cervical ripening viable male Vitals Last Vital Signs Temp 98.0 F 09/06/23 04:00 Pulse 70 09/06/23 09:45 Resp 16 09/06/23 09:45 BP 148/84 09/06/23 09:45 Pulse Ox 99 09/06/23 04:00 O2 Del Method Room Air 09/06/23 04:00 Results Labs OB ([facility]): Obstetrics US 08/24/23 Blood Type O Positive 09/04/23 Antibody Screen Negative 09/04/23 Hct 37.8 % (36-47) 09/05/23 Hgb 12.80 g/dL (11.27-16.99) 09/05/23 Rho(D) Type Rh positive 09/04/23 Plt Count 226 10^3/cmm (157-399) 09/05/23 Hep Bs Antigen Non-reactive (Nonreactive) 02/19/23 Hep Bs Antibody 13.9 (0-8.5) H 04/09/20 Hepatitis C Antibody Non-reactive (Nonreactive) 02/19/23 Rubella IgG Antibody 236.2 IU/mL (0.0-10.0) H 02/19/23 RPR Nonreactive (Nonreactive) 02/19/23 HIV 1&2 Ab & HIV 1 Ag Non-reactive (Non-Reactiv) 02/19/23 C.trachomatis RNA (TMA) Not detected (NOT DETECTED) 03/12/23 N.gonorrhoeae RNA (TMA) Not detected (NOT DETECTED) 03/12/23 T. vaginalis Amp RNA Not detected (NOT DETECTED) 03/12/23 Chlamydia/GC Comment See note 03/12/23 Gest Glucose Tolerance 82 mg/dL (70-139) 05/25/23 VZV IgG Antibody 3440.00 INDEX H 04/09/20 Ser , Semi-Qnt 663.50 mIU/mL 01/07/23 HCG, Qual Positive (Negative) H 01/06/23 Urine Opiates Screen Negative ng/mL (Negative) 02/19/23 Ur Barbiturates Screen Negative ng/mL (Negative) 02/19/23 Ur Phencyclidine Scrn Negative ng/mL (Negative) 02/19/23 Ur Amphetamines Screen Negative ng/mL (Negative) 02/19/23 U Benzodiazepines Scrn Negative ng/mL (Negative) 02/19/23 Urine Cocaine Screen Negative ng/mL (Negative) 02/19/23 U Marijuana (THC) Screen Negative ng/mL (Negative) 02/19/23 Micro Urine Specimen 06/23/23 Discharge Plan Discharge Patient Disposition: Home Condition: Stable Prescriptions: Continued prenat.vits,karishma,[id number] Tablet 1 tab PO DAILY Discharge Orders: Discharge Order (Routine); Ordered 09/06/23 Ordered By: Monique Rea Discharge Diet: Regular Discharge Activity: Increase activity as tolerated and Limit activity as instructed Patient Instructions: Depression (DC), Bleeding (DC), Opioid Safety (DC), Preeclampsia and Eclampsia After Delivery (GEN), Hemorrhage (DC), OB Discharge Report, OB Food/Drug Interaction Guide, Opioid Safety, OB Home Care, OB Proud Parent Packet, OB Vaginal Deliveries - [facility] Assessment: S/p viable male at 39 weeks gestation History of chronic hypertension Plan of Treatment: Discharge patient to home Follow-up with OB clinic in 4 weeks. 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
[2023-09-06 12:40] VITALS: BP 140/80; PULSE 93; RESP 16
== END 2023-09-06 12:40 | disposition home or self-care (01) | DRG 806 ==
LOC: OPOB 14:05 → OBGYN 14:05
PROVIDERS: Admitting Provider Obstetrics & Gynecology; PCP Family Medicine; Visit Provider Obstetrics & Gynecology
DX: O41.03X0 Oligohydramnios, third trimester, not applicable or unspecified (principal); O10.02 Pre-existing essential hypertension complicating childbirth; Z37.0 Single live birth; O71.4 Obstetric high vaginal laceration alone; Z3A.39 39 weeks gestation of pregnancy; O36.5930 Maternal care for other known or suspected poor fetal growth, third trimester, not applicable or unspecified
CPT/HCPCS: 36415; 51702; 59025; 59409; 85025; 85027; 86850; 86900; 98960; 99211; J2590; J2795; J7120; J7121